=== PATIENT | female | born 1975 | race Caucasian/White ===

== ENCOUNTER 2021-01-24 22:27 | Emergency (ER) | payer MEDICAID, OTHER ==
--- NOTE | 2021-01-24 22:46 | EDM.PDOC ---
ED HPI GENERAL MEDICAL PROBLEM - General Chief Complaint: General Stated Complaint: DIZZY,BLOOD PRESSURE LOW Time Seen by Provider: 01/24/21 22:35 Source of Information: Reports: Patient History Limitations: Reports: No Limitations - History of Present Illness INITIAL COMMENTS - FREE TEXT/NARRATIVE: 45-year-old white female that presents with ongoing dizziness for the last 3 we eks or so. Along with episodes of low blood pressure patient states she normally runs about 90/60 but here lately she has been 80s and 70s over 50s and 60s. Tonight at the house she was 80/50. She talked to her federal district law clerk and a general surgeon and they told her to follow-up with her primary care provider which she has not done as of yet. She is due to have her gallbladder out in the next couple of weeks. Tonight though the dizziness she states is about the same as it is been except she has a dull headache which she rates about a 4 out of 10 and not the worst headache of her life she states she does have chronic headache and it feels the same the pressure is over her forehead nonradiating. She states she does have chronic headaches usually daily are released several times a week. She admits she drinks at least a half a gallon of water fluid a day secondary to her history of low blood pressure and prior gastric bypass in 2018. She had no medication changes states she has been eating and drinking fine she denies any nausea or vomiting tonight. With the dizziness she just states that she feels like her eyes when circled for a few seconds she denies any room spinning or self spinning she denies any ringing or roaring in the ears she has no other complaints at this time. None of the symptoms occur positionally Duration: Week(s): Location: Reports: Head Severity: Mild Improves with: Reports: Rest Worsens with: Reports: Movement Associated Symptoms: Reports: Headaches. Denies: Confusion, Chest Pain, Cough, Diaphoresis, Fever/Chills, Loss of Appetite, Nausea/Vomiting, Shortness of Breath, Syncope, Weakness - Related Data Allergies Allergy/AdvReac Type Severity Reaction Status Date / Time No Known Allergies Allergy Verified 06/13/16 09:26 ED ROS GENERAL - Review of Systems Review Of Systems: See Below Constitutional: Reports: No Symptoms HEENT: Reports: No Symptoms Respiratory: Reports: No Symptoms Cardiovascular: Reports: No Symptoms Endocrine: Reports: No Symptoms GI/Abdominal: Reports: No Symptoms : Reports: No Symptoms Musculoskeletal: Reports: No Symptoms Skin: Reports: No Symptoms Neurological: Reports: Dizziness, Headache. Denies: No Symptoms, Confusion, Numbness, Paresthesia, Pre-Existing Deficit, Seizure, Syncope, Difficulty [place], Weakness Psychiatric: Reports: No Symptoms Hematologic/Lymphatic: Reports: No Symptoms Immunologic: Reports: No Symptoms ED EXAM, DIZZINESS - Physical Exam Exam: See Below Exam Limited By: No Limitations General Appearance: Alert, WD/WN, No Apparent Distress Eye Exam: Bilateral Eye: EOMI, Normal Inspection, PERRL (No noted nystagmus) Ears: Normal External Exam, Normal Canal, Hearing Grossly Normal, Normal TMs Nose: Normal Inspection, Normal Mucosa, No Blood Throat/Mouth: Normal Inspection, Normal Lips, Normal Teeth, Normal Gums, Normal Oropharynx, Normal Voice, No Airway Compromise Head Exam: Atraumatic, Normocephalic Neck: Normal Inspection, Supple, Non-Tender, Full Range of Motion Respiratory/Chest: No Respiratory Distress, Lungs Clear, Normal Breath Sounds, No Accessory Muscle Use, Chest Non-Tender Cardiovascular: Normal Peripheral Pulses, Regular Rate, Rhythm, No Edema, No Gallop, No JVD, No Murmur, No Rub GI/Abdominal: Normal Bowel Sounds, Soft, Non-Tender, No Organomegaly, No Distention. No: Guarding, Rigid, Rebound, Tender, Abnormal Bowel Sounds Neurological: Alert, Normal Mood/Affect, Normal Dorsiflexion, CN II-XII Intact, Normal Gait, Normal Reflexes, No Motor/Sensory Deficits, Oriented x 3, Other (Cranial nerves II through XII are intact 5 of 5 upper extremity lower extremity strength bilateral equal epic cadence analyst equal facial sensation normal Romberg) Back Exam: Normal Inspection, Full Range of Motion Extremities: Normal Inspection, Normal Range of Motion, Non-Tender, No Pedal Edema, Normal Capillary Refill Psychiatric: Normal Affect, Normal Mood Skin Exam: Warm, Dry, Intact, Normal Color, No Rash Course - Vital Signs Text/Narrative:: CBC BMP CBC BMP within normal limits vital signs here noted to be within normal limits we will treat patient with meclizine 1 p.o. every 8 hours and have the patient follow-up with her primary care provider - Orders/Labs/Meds Labs: Laboratory Tests 01/24/21 01/24/21 Range/Units 22:56 22:56 WBC 4.8 (4.0-10.0) x10^3/uL RBC 3.79 L (4.00-5.50) x10^6/uL Hgb 11.9 L (12.0-16.0) g/dL Hct 34.8 (33.0-47.0) % MCV 91.8 (78.0-93.0) fL MCH 31.4 (26.0-32.0) pg MCHC 34.2 (32.0-36.0) g/dL RDW Coeff of Claudio 11.8 (10.0-15.0) % Plt Count 167 (130-400) x10^3/uL Immature Gran % (Auto) 0.20 (0.00-0.43) % Neut % (Auto) 49.3 L (50.0-80.0) % Lymph % (Auto) 36.7 (25.0-50.0) % Ocean % (Auto) 11.7 H (2.0-11.0) % Eos % (Auto) 1.7 (0.0-4.0) % Baso % (Auto) 0.4 (0.2-1.2) % Neut # (Auto) 2.4 (1.8-7.7) x10^3/uL Lymph # (Auto) 1.8 (1.0-4.8) x10^3/uL Ocean # (Auto) 0.6 (0.0-0.8) x10^3/uL Eos # (Auto) 0.1 (0.0-0.5) x10^3/uL Baso # (Auto) 0.0 (0.0-0.2) x10^3/uL Immature Gran # (Auto) 0.01 (0.00-0.07) x10^3/uL Sodium 139 (136-145) mmol/L Potassium 4.2 (3.5-5.1) mmol/L Chloride 106 (98-107) mmol/L Carbon Dioxide 28 (21-32) mmol/L Anion Gap 9.2 (5-15) mmol/L BUN 13 (7-18) mg/dL Creatinine 0.9 (0.55-1.02) mg/dL Est Cr Clr Drug Dosing TNP Estimated GFR (MDRD) > 60 Glucose 97 (70-99) mg/dL Calcium 8.6 (8.5-10.1) mg/dL Departure - Departure Time of Disposition: 23:30 Disposition: Home, Self-Care 01 Condition: Good Clinical Impression: Dizziness - Discharge Information *PRESCRIPTION DRUG MONITORING PROGRAM REVIEWED*: No *COPY OF PRESCRIPTION DRUG MONITORING REPORT IN PATIENT BEATA: No Forms: ED Department Discharge - Problem List & Annotations (1) Dizziness SNOMED Code(s): 831110749, 310227718 Code(s): R42 - DIZZINESS AND GIDDINESS Status: Acute Current Visit: Yes (2) Headache SNOMED Code(s): 36854848 Code(s): R51.9 - HEADACHE, UNSPECIFIED Status: Acute Current Visit: Yes
[2021-01-24 23:21] LABS: CHLORIDE,CL 106 mmol/L (98-107); SODIUM,NA 139 mmol/L (136-145)
[2021-01-24 23:22] LABS: ANION GAP 9.2 mmol/L (5-15)
[2021-01-24] MEDS ORDERED: Meclizine 25 MG Tab PO ONE (23:31)
[2021-01-24] MEDS ORDERED: Acetaminophen 325 MG Tab PO ONE (23:31)
== END 2021-01-25 00:17 | disposition home or self-care (01) ==
LOC: VM.ED 22:27
DX: R42 Dizziness and giddiness (principal)
CPT/HCPCS: 36415; 80048; 85025; 99284; A9270; 99283